=== PATIENT | male | born 1950 | race Caucasian/White ===

== ENCOUNTER 2019-07-04 13:48 | Inpatient (IN) ==
[2019-07-04] MEDS ORDERED: MORPHINE IV ONE (14:26)
[2019-07-04] MEDS ORDERED: ASPIRIN PO ONE (14:26)
[2019-07-04 15:00] LABS: BASO# 0.02 X1000 (0.0-0.2); BASO% 0.1 % (0.0-0.8); EOS# 0.01 X1000 (0.0-0.7); HEMATOCRIT 50.4 % (42.0-52.0); LYMPH% 8.9 % (20.5-51.1); MCH 28.1 PG (27-31); MCHC 33.7 g/dL (33-37); MCV 83.4 FL (81-99); MONO# 1.63 X1000 (0.11-0.59); MONO% 8.1 % (1.7-9.3); MPV 11.1 FL (7.4-10.4); NEUT% 82.9 % (42.2-75.2); PLT 334 X1000 (130-400); RBC 6.04 XMIL (4.7-6.1); RDW 14.9 % (11.5-14.5); WBC 20.16 X1000 (4.8-10.8)
[2019-07-04 15:25] LABS: ESTIMATED GFR > 60
--- NOTE | 2019-07-04 15:27 | Diag Imaging Result Doc PS360 ---
EXAM: CHEST-2 VIEWS INDICATION: cp TECHNIQUE: 3 views COMPARISON: None. FINDINGS: There is a small nodule at the periphery of the right mid to upper lung zone. It is not clearly calcified. It could represent a noncalcified granuloma. However, CT surveillance is suggested. There is interstitial thickening with vague Ken B lines at the mid and lower lung zones bilaterally suggesting mild edema. There is subsegmental atelectasis at the right lower lung zone. There is no significant pleural fluid collection or pneumothorax identified. The cardiac silhouette is unremarkable. IMPRESSION: 1.Mild interstitial thickening with vague Ken B lines at the mid and lower lung zone suggesting mild interstitial edema. 2.Indeterminant lung nodule at the periphery of the right mid to upper lung zone. Electronically signed by Luis A Orr 07/04/2019 3:25 PM
[2019-07-04 15:38] LABS: AGAP 17; ALB/GLOB RATIO 1.5; ALBUMIN 4.4 g/dL (3.5-5.0); ALKALINE PHOSPHATASE 74 U/L (32-122); BUN 14 mg/dL (8-22); CALCIUM 9.3 mg/dL (8.8-10.2); CHLORIDE 94 mmol/L (98-107); COSMO 271; GLUCOSE 169 mg/dL (70-104); GOT 156 U/L (10-34); GPT 55 U/L (10-44); POTASSIUM 4.7 mmol/L (3.5-5.1); SODIUM 133 mmol/L (136-145); TCO2 22 mmol/L (25-35); TOTAL BILIRUBIN 0.95 mg/dL (0.20-1.00); TOTAL PROTEIN 7.3 g/dL (6.3-8.3)
[2019-07-04] MEDS ORDERED: NITROGLYCERIN LINGUAL SPRAY SL PRN (15:50)
[2019-07-04] MEDS ORDERED: NITROGLYCERIN SL PRN ×2 (15:53→15:54)
[2019-07-04 15:59] LABS: FREE T4 1.07 ng/dL (0.93-1.70); TSH 3.49 uIUmL (0.27-4.20)
[2019-07-04 16:04] LABS: CK INDEX 13.6 (0.0-2.5); CK-MB 226.3 ng/mL (0.0-5.0)
--- NOTE | 2019-07-04 17:34 | Diag Imaging Result Doc PS360 ---
EXAM: CT THORAX W/CONTRAST INDICATION: chest pain TECHNIQUE: This exam was performed using automated exposure control, adjustment of mA or kV according to patient size, and/or use of iterative reconstruction technique. COMPARISON: None. FINDINGS: There is advanced centrilobular emphysema with an apical predominance. The nodule seen on the recent chest radiograph in the right upper lobe corresponds to a calcified granuloma. However, there is a cavitary mass in the medial right lower lobe that can be seen on image 62 of series 3. Is difficult to identify on the recent radiograph, likely being obscured by the pulmonary vasculature and the right heart border. It measures 3.4 x 2.7 cm axially. A cavitary neoplasm and pulmonary abscess are both in the differential. There are several other calcified granulomata and there are a few subcentimeter noncalcified nodules that are nonspecific seen mainly in the right lung. For reference, one of these nodules is near the right lung apex measuring 6.2 mm on image 17 of series 3. It is possible that they represent noncalcified granulomata. Continued surveillance is recommended, however. There is interstitial thickening at the lung bases suggesting mild edema. There are trace bilateral pleural effusions and there is minimal right basilar atelectasis. There are prominent subcarinal and right hilar lymph nodes that are nonspecific. There are somewhat calcified lymph nodes indicating prior granulomatous disease. For reference, a noncalcified subcarinal becka lesion measures up to 2.9 x 2.1 cm axially. There is no cardiomegaly. Limited views of the upper abdomen reveals moderate hepatic steatosis. The upper abdomen is essentially unremarkable, otherwise. There is thoracic spondylosis. There are degenerative changes at the right shoulder. There is nothing to suggest local bony metastatic disease to the thorax. IMPRESSION: 1.Advanced pulmonary emphysema. 2.Cavitary mass in the right lower lobe. Although this could represent a pulmonary abscess, cavitary neoplasm cannot be excluded. 3.Evidence of prior granulomatous disease with a calcified granuloma corresponding to the nodule that was seen on the recent chest radiograph in the right upper lobe. 4.Several other scattered subcentimeter noncalcified nodules with more on the right that are nonspecific. 5.Trace bilateral effusions. 6.Mild interstitial edema at the lung bases. 7.Other incidental/nonacute findings detailed above. Electronically signed by Luis A Orr 07/04/2019 5:31 PM
--- NOTE | 2019-07-04 17:57 | PROVIDER DOCUMENTATION ---
This chart was entered by Melinda Kruse Scribe, acting as scribe for Ty Nelson CRNP. HPI-Chest Pain - General Chief Complaint: Chest Pain Stated Complaint: CHEST PAIN Time Seen by Provider: 07/04/19 13:51 Source: patient Allergies/Adverse Reactions: Patient Allergies Allergy/AdvReac Type Severity Reaction Status Date / Time Penicillins Allergy Unknown Verified 07/04/19 14:28 - History of Present Illness-CP Nature of Presenting Problem: 69 yom presents to the ed via pov from [facility]. pt was seen at [facility] this am for c/o chest pain [facility] then sent back to the ed due to CP still persistent. pt had elevated WC and Trop when left [facility] at 1249. pt had labs and CXR done while in [place] [facility]. he reports when chest pain is at its worse he becomes sob and diaphoretic and thomas pain is a deep dull ache. he reports pain is intermittent and has been going for 3 days. Location: reports: central Chest Pain Radiation: reports: no radiation Quality of Pain: reports: dull Severity in ED: moderate Onset/Duration: 3 days ago Timing: intermittent Context/Activities at Onset: reports: light activity Modifying Factors: improves with: analgesics (mild improvement) Associated Symptoms: reports: diaphoresis, shortness of breath Nitro Today/Relief: no nitro taken today Aspirin Treatment Today: 325 mg x 1, provided by ED Prior Chest Pain/Cardiac Workup: reports: no prior chest pain Similar Symptoms Previously?: Yes Recently Seen Here or By Another Healthcare Provider: Yes ([facility] today x2) Review of Systems - Adult - REVIEW OF SYSTEMS - ADULT Constitutional: denies: chills, fever Eyes: reports: no symptoms reported Ears, Nose, Mouth & Throat: reports: no symptoms reported Cardiovascular: reports: see HPI, chest pain. denies: palpitations Respiratory: reports: see HPI, shortness of breath. denies: cough, wheezing Gastrointestinal: denies: abdominal pain, nausea, vomiting Genitourinary: reports: no symptoms reported Musculoskeletal: denies: back pain, neck pain Integumentary: reports: no symptoms reported Neurological: denies: dizziness/vertigo, headache/migraines Psychiatric: reports: no symptoms reported Endocrine: reports: no symptoms reported Hematologic/Lymphatic: reports: no symptoms reported Allergic/Immunologic: reports: no symptoms reported All Other Systems: Reviewed and Negative Past History - Adult - PAST MEDICAL HISTORY-ADULT Review of Records: reports: Old Records Reviewed, Nursing Assessment Review, Medications Reviewed, Social history reviewed & non-contributory. Major Childhood Illnesses: reports: denies history Cardiovascular: reports: denies history Respiratory: reports: denies history Gastrointestinal: reports: denies history Genitourinary: reports: denies history Musculoskeletal: reports: denies history Neurological: reports: denies history Endocrine/Immune: reports: denies history Other Conditions: reports: denies history - PRIOR SURGERIES/PROCEDURES Surgical/Procedure History: reports: reviewed, not pertinent - IMMUNIZATION STATUS Childhood Immunizations: See Nurse Assessment Flu Vaccine: See Nurse Assessment - FAMILY HISTORY Family History: reviewed, not pertinent - SOCIAL HISTORY Smoking: denies Substance Use: denies Living Situation: family Physical Exam-General - PHYSICAL EXAM-ADULT Initial Vital Signs Reviewed: Yes - CONSTITUTIONAL General Appearance: appears well, alert, no apparent distress (nontoxic in appearance pt admits pain is still present but not at its worst on exam) - EYES Eyes: PERRL/EOMI, pink conjunctivae - HEAD, EARS, NOSE, MOUTH & THROAT HENMT: moist mucous membranes - NECK Neck: full range of motion, supple, normal inspection - RESPIRATORY Respiratory: lungs clear, normal breath sounds - CARDIOVASCULAR Cardiovascular: normal peripheral pulses, regular rate, rhythm - CHEST (BREASTS) Chest/Breast: other (c/o dull ache in central chest that can not be repoduced) - GASTROINTESTINAL (ABDOMEN) Abdominal Exam: normal bowel sounds, non tender - LYMPHATIC Lymphatic: no adenopathy - MUSCULOSKELETAL Back Exam: no CVA tenderness, no vertebral tenderness Extremity: normal range of motion, non-tender, normal inspection - SKIN Integumentary: normal color, normal turgor, warm/dry - NEUROLOGIC Neurologic: grossly normal - PSYCHIATRIC Psych/Mental Status: normal mood/affect, normal thought content, normal thought process, oriented x 3 - HEART Score HEART Score: History: Moderately Suspicious HEART Score: ECG: Non-Specific Repolarization Disturbance/LBBB/PM HEART Score: Age: > or = 65 Years HEART Score: Risk Factors for Atherosclerotic Disease: 1 or 2 Risk Factors HEART Score: Troponin: > or = 3x Normal Limit Total HEART Score:: 7 Progress - PLAN OF CARE/RESULTS Progress/Plan/Lab Results: Vital Signs - 8 hr 07/04/19 14:23 07/04/19 15:02 07/04/19 15:57 Temperature 98.7 F Pulse Rate 91 H 84 95 H Respiratory Rate 24 23 27 H Blood Pressure 140/80 120/83 114/78 O2 Sat by Pulse Oximetry 96 98 97 Laboratory Results - last 24 hr 07/04/19 07/04/19 07/04/19 14:10 14:10 14:10 WBC RBC Hgb Hct MCV MCH MCHC RDW Std Deviation Plt Count MPV Neut % (Auto) Lymph % (Auto) Conway % (Auto) Eos % (Auto) Baso % (Auto) Neut # (Auto) Lymph # (Auto) Conway # (Auto) Eos # (Auto) Baso # (Auto) Sodium 133 L Potassium 4.7 Chloride 94 L Carbon Dioxide 22 L Anion Gap 17 BUN 14 Creatinine 1.0 Estimated GFR/1.73 m2 > 60 BUN/Creatinine Ratio 14 Glucose 169 H Calculated Osmolality 271 Calcium 9.3 Total Bilirubin 0.95 AST 156 H ALT 55 H Alkaline Phosphatase 74 Creatine Kinase 1663 H Creatine Kinase Index 13.6 H CK-MB (CK-2) 226.30 H Troponin T High Sens Total Protein 7.3 Albumin 4.4 Globulin 2.9 Albumin/Globulin Ratio 1.5 TSH 3.49 Free T4 1.07 07/04/19 07/04/19 14:10 14:10 WBC 20.16 H RBC 6.04 Hgb 17.0 Hct 50.4 MCV 83.4 MCH 28.1 MCHC 33.7 RDW Std Deviation 14.9 H Plt Count 334 MPV 11.1 H Neut % (Auto) 82.9 H Lymph % (Auto) 8.9 L Conway % (Auto) 8.1 Eos % (Auto) 0.0 Baso % (Auto) 0.1 Neut # (Auto) 16.70 H Lymph # (Auto) 1.80 Conway # (Auto) 1.63 H Eos # (Auto) 0.01 Baso # (Auto) 0.02 Sodium Potassium Chloride Carbon Dioxide Anion Gap BUN Creatinine Estimated GFR/1.73 m2 BUN/Creatinine Ratio Glucose Calculated Osmolality Calcium Total Bilirubin AST ALT Alkaline Phosphatase Creatine Kinase Creatine Kinase Index CK-MB (CK-2) Troponin T High Sens 918 H* Total Protein Albumin Globulin Albumin/Globulin Ratio TSH Free T4 Orders Category Date Time Status Isolation Precautions Setup NOW Care 07/04/19 17:52 Active Nursing- MD Consult Request ROUTINE Care 07/04/19 17:53 Active Nursing- MD Consult Request ROUTINE Care 07/04/19 17:55 Ordered Nursing- Obtain EKG ONCE Care 07/04/19 14:22 Active MD [Physician/Provider Consults] Routine Cons 07/04/19 17:53 Ordered CHEST-2 VIEWS [RAD] Stat Exams 07/04/19 14:22 Completed Chest [CT THORAX W/CONTRAST] [CT] Stat Exams 07/04/19 16:24 Completed CBC WITH ELECTRONIC DIFF [HEME] Stat Lab 07/04/19 14:10 Completed CK PROFILE [SP CHEM] Stat Lab 07/04/19 14:10 Completed COMPREHENSIVE METABOLIC PANEL [CHEM] Stat Lab 07/04/19 14:10 Completed FREE T4 Stat Lab 07/04/19 14:10 Completed TROPONIN T HIGH SENSITIVITY Stat Lab 07/04/19 14:10 Completed TROPONIN T HIGH SENSITIVITY Stat Lab 07/04/19 16:18 Uncollected TSH Stat Lab 07/04/19 14:10 Completed UA NIMS W/REFLEX CULT [URINALYSIS] Stat Lab 07/04/19 14:22 Uncollected URINE DRUG SCREEN PL Stat Lab 07/04/19 14:22 Uncollected Aspirin Med 07/04/19 14:26 Discontinued 325 mg PO NOW ONE Morphine Med 07/04/19 14:26 Discontinued 4 mg IV NOW ONE Nitroglycerin Sl [Nitroglycerin] Med 07/04/19 15:53 Active 0.4 mg SL Q5M PRN PRN EKG [EKG] Stat Ther 07/04/19 14:22 Ordered EKG [EKG] Stat Ther 07/04/19 16:26 Ordered pt brought records from visit from [place] ED with impression of PA and Lateral Chest:Bibasilar interstitial opacities may repersent infiltrates. this could be seen in the setting of Covid19. signed by Dr Mitch Hagen MD Result Diagrams: 07/04/19 14:10 07/04/19 14:10 - REASSESSMENT Reassessment #1 Time Reassessed: 15:51 Status: unchanged (pt sts pain is the same and has not improved) - EKG 1 Time of EKG reading by physician:: 13:58 EKG Read and Signed by:: Anton French EKG Interpretation (*Must complete 3 of following elements*): Abnormal Rate: 97 Rhythm: nsr Man: left (deviation) QRS: other (possible left atrial enlargement) DC Interval: normal ST Wave: normal - XRAY 1 XRAY: Bilateral XRAY Study: Chest Impression: See EMR Report (IMPRESSION: 1.Mild interstitial thickening with vague Ken B lines at the mid and lower lung zone suggesting mild interstitial edema. 2.Indeterminant lung nodule at the periphery of the right mid to upper lung zone. Electronically signed by Luis A Orr 07/04/2019 3:25 PM 07/04/19 1525) - CONSULTS/PCP/HOSPITALIST Notification #1 *Consult/PCP/Hospitalist*: transfer center Time Discussed: 15:59 Reason/Comments: elevated Troponin Consult Disposition: other (declined transfer due to patient was tested at [place] for COVID-19. Patient needs to be evaluated by cardiology here. Then, transfer can be accepted as a hospitalist to hospitalist transfer.) #2 Consult: Dr Luna Time Discussed: 16:26 Reason/Comments: Chest pain Consult Disposition: Will see in ED, other (Admit to hospitalist consult me. Get second EKG, Troponin, and CT scan of the chest.) #3 Consult: YULIYA Eric Time Discussed: 17:56 Consult Disposition: Admit Departure - Departure Date of Disposition Decision: 07/04/19 Time of Disposition Decision: 17:56 DIAGNOSIS: Myocardial infarct Qualifiers: Myocardial infarction type: non-ST elevation myocardial infarction Qualified Code(s): I21.4 - Non-ST elevation (NSTEMI) myocardial infarction Disposition: ADMITTED INPATIENT 09 Certified Medical Emergency: Emergent Condition: Critical Additional Instructions: ED Follow Up Instructions: You have been treated by a care provider in the Emergency Department. These instructions are being provided to you so you can have an understanding of how to care for yourself upon discharge. Upon discharge from the Emergency Dep artment, you are responsible for making arrangements for follow-up care by a physician of your choice. Take all prescribed medications as directed. Return to the Emergency Department immediately for any new or worsening symptoms. You may call the Physician Referral phone number at [phone] to obtain a list of Physicians who are taking new patients. Referrals and Follow-Ups: Noe Norwood [Primary Care Provider] - - Critical Care Note This patient required my direct & personal management of CC.: Yes Total Time (mins): 36 Critical Care Statement: This patient required my direct personal management to treat or rule out processes, the absence of which, could potentiallly result in sudden, clinically significant life or limb threatening deterioration. Attestation - Physician/ AGGIE Attestation Patient care was provided by Advanced Practice Provider:: Yes Advanced Practice Provider:: Ty Nelson Advanced Practice Provider documentation review:: The Mid-level provider documentation, treatment plan and medical decision making was reviewed by the maricel mon who agrees with all treatment and medical decision making by the MLP. The physician spent face to face time with patient:: No Advanced Practice Provider documentation review:: Supervising physician onsite and consulted in the evaluation and care of this patient. The physician did not have a face to face encounter with the patient. This chart was documented by the indicated scribe, (Melinda Kruse Scribe) and accurately reflects the services I performed and decisions made by me, Ty Nelson CRNP, as attested by the provider's signature.
[2019-07-04] MEDS ORDERED: LASIX IV ONE (18:11)
[2019-07-04 18:13] LABS: URINE SOURCE CLEAN CATCH
[2019-07-04] MEDS ORDERED: HEPARIN IV PRN (18:13)
[2019-07-04] MEDS ORDERED: HEPARIN IV ONE (18:13)
[2019-07-04] MEDS: HEPARIN 25,000 UNITS/D5W 25,000 UNIT/250 ML IV.SOLN IV SCH (18:15)
[2019-07-04 18:17] LABS: BILIRUBIN URINE NEGATIVE (NEGATIVE); BLOOD URINE NEGATIVE (NEGATIVE); COLOR YELLOW; GLUCOSE URINE NEGATIVE (NEGATIVE); KETONE URINE 10 mg/dL (NEGATIVE); LEUKOCYTES URINE NEGATIVE (NEGATIVE); NITRITE URINE NEGATIVE (NEGATIVE); PROTEIN URINE 70 mg/dL (NEGATIVE); TURBIDITY URINE CLEAR (CLEAR); UROBILINOGEN URINE 2 mg/dL (NORMAL)
[2019-07-04 18:18] LABS: UR EPITHELIAL CELLS <10 /HPF (<10); URINE BACTERIA NEGATIVE /HPF; URINE RBC <10 /HPF (<10); URINE WBC <10 /HPF (<10)
[2019-07-04] MEDS ORDERED: TYLENOL PO PRN (18:18)
[2019-07-04] MEDS ORDERED: ZOFRAN IV PRN (18:18)
[2019-07-04] MEDS ORDERED: AMBIEN PO PRN (18:18)
[2019-07-04 18:22] LABS: SP GRAVITY URINE 1.025
[2019-07-04] MEDS: LEVAQUIN 500 MG/D5W 500 MG/100 ML IVPB IV SCH (18:29)
--- NOTE | 2019-07-04 18:35 | CARDIOLOGY CONSULTATION ---
DATE: 07/04/2019 HISTORY OF PRESENT ILLNESS: A 69-year-old gentleman had chest discomfort for the last 2 days. He describes it as sharp in character over the retro sternum. Initially it was grade 4. No radiation to the back or down the arm. Subsequently he went to bed. Last night he had a severe episode of again sharp pain which was subsequently a pressure-like sensation across his chest. Associated with shortness of breath and some cough. He did not have any fevers. There is no dizziness or syncope. He does not complain of any palpitations. He is a smoker, smokes about half a pack of cigarettes a day and has smoked for more than 40 years. There is no history of alcohol or illicit drug abuse. He went to the urgent care in [place]. A COVID-19 test was done today, as his chest x-ray was abnormal. Subsequently he was asked to come to the emergency room at [facility] On arrival he had an electrocardiogram done, which revealed normal sinus rhythm with lateral myocardial infarction, with Q waves in the lateral leads with 0.[address] elevation, with T- wave inversion in the lateral leads. In addition, Q waves were noted in the inferior leads with 0.[address] elevation in the inferior leads. The patient's CK and CK-MB revealed a troponin of 918, CK-MB of 226 with a CK index of 13.6. Sodium 133, potassium 4.7, BUN 14, creatinine 1.0. WBC 20.16, hemoglobin 17.0, hematocrit 50.4, platelet count of 334,000. The patient also had a CT scan done which revealed advanced pulmonary emphysema; cavitary mass in the right lower lobe measuring 3.4 cm to 2.7 cm, which had a cavitary lesion which could represent a pulmonary abscess versus neoplasm. In addition, scattered nodules were noted in the right lung. There was trace bilateral effusion with mild interstitial edema. REVIEW OF SYSTEMS: A 14-point review of systems was done. GI system: There is no history of nausea, vomiting or diarrhea. There is no history of hematemesis or melena. Central nervous system: No focal weakness to suggest a CVA or TIA. Genitourinary system: There is no dysuria or hematuria. Respiratory system: There is no history of fevers. He has had some cough. There is no dizziness or syncope. PHYSICAL EXAMINATION: Blood pressure 114/78. Jugular venous pressure was normal. First and second heart sounds were heard. There was no S3 gallop. Respiratory system: Few wheezes. Abdomen was soft, nontender. There was no guarding or rigidity. Bowel sounds were heard. Central nervous system: Alert and oriented. Moving all 4 extremities. Examination of extremities revealed no pedal edema. HEENT: Atraumatic, normocephalic. Pupils were equal and reacting to light. SOCIAL HISTORY: The patient is a chronic smoker. There is no history of alcohol or illicit drug abuse. The patient lives at home. PAST MEDICAL HISTORY: Emphysema, hyperlipidemia. MEDICATIONS: He takes aspirin and lipid-lowering agents at home. ASSESSMENT AND PLAN: Mr. Dontae bowden is a 69-year-old gentleman with history of emphysema, chronic smoker. He comes with complaints of sharp episodes of chest pain. Yesterday he had sharp chest pains with pressure-like sensation in the retrosternal region and went to a walk-in clinic in [place]. They did COVID-19 screening and subsequently he was advised to come here. He has the following problems: 1. He has ST elevation myocardial infarction; however, he has had these symptoms for the last 2 days.Beyond the window of acute intervention. We will plan for aspirin, intravenous heparin per standard protocol, beta- blockers and Lipitor 80 mg a day. In addition to Plavix. 2. We will get an echocardiogram to assess cardiac and valvular function. 3. We will also get serial cardiac enzymes. 4. We will start him on nitroglycerin paste. At the time of my examination, he describes his chest pain as mild. 5. He also has a cavitary lesion which is new, measuring 3.4 to 2.7 cm, associated with emphysema with noncalcified nodules on the right lung with some bilateral pleural effusions. We will consult Pulmonology. In addition, this effusion is likely to be secondary to heart failure. We will give him Lasix as well. 6. As far as further management plan is concerned, we will need to do a cardiac catheterization as well to assess his coronaries arteries, and we will plan for that on Saturday. 7. He had COVID-19 screening done. This was in a walk-in clinic in [place]. We do not have any reports pertaining to that. Thank you for the consult. We will follow hospital course. cc: Rod Luna MD MTDMita
[2019-07-04 18:48] LABS: HEMOGLOBIN A1C 6.1 % (4.8-6.0)
--- NOTE | 2019-07-04 18:55 | HISTORY AND PHYSICAL ---
HISTORY OF PRESENT ILLNESS: He reports that 3 days ago he started having some pain midsternal. He describes it as sharp, and it was kind intermittent, but at about 3 o'clock this morning it got more severe and profound. He went to, I think, the [facility], where troponins were elevated. He had T-wave inversion in V4 through V6 and really appeared to have loss of R-waves in V1 through V3, so it appears he has had a myocardial infarction secondary to non ST elevation, past the point of being able of being able to benefit from thrombolytics. He denies fever or chills. He has not had any productive cough. No pleuritic pain. No exposures to upper respiratory infection that she is reporting. He has smoked for greater than 50 years and recently has cut down on his tobacco. When he had a CT of his chest, he had advanced emphysema. There was a cavitary mass in the right lower lobe which could represent pulmonary abscess. Cavitary neoplasm could not be excluded, and he has granulomatous disease, calcified granuloma corresponding to a nodule that has been seen on his chest radiograph in the right upper lobe. Several other scattered subcentimeter noncalcified nodules, more on the right, and they were nonspecific. Trace bilateral effusions. Mild interstitial edema in the lung bases. PAST SURGICAL HISTORY: He has had a tonsillectomy. He has had an appendectomy. REVIEW OF SYSTEMS: General: He denies any weight gain or loss. No fever or chills. HEENT: No change in visual or hearing acuity. No adenopathy that he has appreciated. No sinus tenderness or upper respiratory complaints such as sore throat or postnasal drainage. Respiratory: No increased work of breathing or dyspnea. Cardiovascular: Chest pain which is more of a sharp sensation right in the midsternum. No radiation to his neck or to his arm or shoulder or to his back. No pleuritic component. : No change in bowels. No gross hematochezia. : No gross hematuria. Musculoskeletal/Neurologic: No focal complaints Endocrinologic/hemologic: No significant history. PHYSICAL EXAMINATION: VITAL SIGNS: He is afebrile, temperature 98.3, pulse 95, respirations 27, blood pressure 114/78. O2 saturation is 97%. Weight is 178 pounds. Height 5 feet 8 inches. HEENT: Pupils are equal and round. LUNGS: Clear in all lung garvey. CARDIOVASCULAR: Regular rhythm and rate without murmur or S3. ABDOMEN: Soft, nondistended. SKIN: Warm and dry. NECK: Supple. No adenopathy. LABORATORY DATA: White count 20,160, hematocrit is 40, platelet count 334,000. He has 82% neutrophils, 8.9% lymphocytes, 8.1% monocytes. Sodium 133, potassium 4.7, chloride 94, bicarb 22, BUN 14, creatinine 1.0, blood sugar 169, calcium 9.3. AST is 156, ALT 55. His CK was 1663 with an MB of 226, and troponin was 918. Albumin 4.4. Chest x-ray, there is mild interstitial thickening with vague Ken B lines in the mid and lower lung zones suggesting mild interstitial edema. Indeterminate lung nodule in the periphery of the right lung in the mid upper lung zone. ASSESSMENT AND PLAN: 1. Chest pain consistent with a non ST-wave myocardial infarction. We are going to put him on full-dose heparin and give him some nitroglycerin as well as beta blockers. Dr. Luna has evaluated already. Plan to move him to the intensive care unit. 2. He has underlying chronic obstructive pulmonary disease. 3. There is a cavitary lesion seen on the CT scan is in the right lower lobe. This could represent a pulmonary abscess, but cavitary neoplasm is strongly suspected. I am going to go ahead and put him on an antibiotic for possible postobstructive pneumonia. He is allergic to penicillin, so we will use Levaquin. He does not have a prolonged QT interval that I am concerned about. I will put him on 500 mg of Levaquin every 24 hours. I am going to ask Pulmonary to help evaluate the cavitary mass and help with management and treatment. 4. We will watch his renal function and watch his electrolytes. He has no history of diabetes. 5. Will put him on a heart healthy diet. 6. Note, he does have leukocytosis. It appears to be nonspecific. I suspect it is stress demargination from his chest pain and heart attack. I do not see any other source of bacterial infection. I do not think he has symptoms suggestive of a viral upper respiratory tract infection. I understand he was tested for Coronavirus Disease at the [facility], so we will await those results, but he does not appear to have active viral upper respiratory tract infection. cc: Shayne Matson MD
--- NOTE | 2019-07-04 19:01 | EKG Report ---
Test Performed on : 07/04/2019 1:58:07 PM Test Reason : cp Blood Pressure : / mmHG Vent. Rate : 097 BPM Atrial Rate : 097 BPM P-R Int : 140 ms QRS Dur : 086 ms QT Int : 382 ms P-R-T Axes : 062 -30 054 degrees QTc Int : 485 ms Normal sinus rhythm. Possible Left atrial enlargement Left axis deviation Inferior infarct , age undetermined Anteroseptal infarct , age undetermined Abnormal ECG No previous ECGs available Unconfirmed Result
--- NOTE | 2019-07-04 19:01 | EKG Report ---
Test Performed on : 07/04/2019 5:29:58 PM Test Reason : REPEAT Blood Pressure : / mmHG Vent. Rate : 094 BPM Atrial Rate : 094 BPM P-R Int : 140 ms QRS Dur : 084 ms QT Int : 372 ms P-R-T Axes : 061 -40 035 degrees QTc Int : 465 ms Normal sinus rhythm. Left axis deviation Inferior infarct (cited on or before 04-JUL-2019) Anterior infarct (cited on or before 04-JUL-2019) Abnormal ECG When compared with ECG of 04-JUL-2019 13:58, (Unconfirmed) No significant change was found Unconfirmed Result
[2019-07-04] MEDS ORDERED: NITROGLYCERIN TOP ONE (19:30)
[2019-07-04] MEDS ORDERED: HEPARIN ONE (19:36)
[2019-07-04 19:59] LABS: INR 1.11; PROTIME 14.5 Seconds (11.0-16.0)
[2019-07-04 20:16] LABS: UR AMPHETAMINES QUAL NONE DETECTED (NONE DETECT); UR BARBITUATES QUAL NONE DETECTED (NONE DETECT); UR BENZODIAZEPIN QUAL NONE DETECTED (NONE DETECT); UR CANNABINOIDS QUAL NONE DETECTED (NONE DETECT); UR COCAINE QUAL NONE DETECTED (NONE DETECT); UR METHADONE QUAL NONE DETECTED (NONE DETECT); UR OPIATES QUAL PRESUMPTIVE POSITIVE (NONE DETECT); UR OXYCODONE QUAL NONE DETECTED (NONE DETECT); UR PCP QUAL NONE DETECTED (NONE DETECT)
[2019-07-04] MEDS: LOPRESSOR PO SCH (21:00)
[2019-07-04] MEDS: LIPITOR PO SCH (21:00)
[2019-07-04 22:15] LABS: CK INDEX 10.8 (0.0-2.5); CK-MB 273.9 ng/mL (0.0-5.0)
[2019-07-05 02:56] LABS: CK INDEX 10.7 (0.0-2.5); CK-MB 211.7 ng/mL (0.0-5.0)
[2019-07-05 06:37] LABS: BASO# 0.17 X1000 (0.0-0.2); HEMATOCRIT 47.3 % (42.0-52.0); HEMOGLOBIN 15.8 g/dL (14.0-18.0); IMM GRAN# 0.07 X1000 (0.0-0.04); IMM GRAN% 0.4 % (0.0-0.5); LYMPH# 2.08 X1000 (1.2-3.4); MCH 28.1 PG (27-31); MCHC 33.4 g/dL (33-37); MONO# 2.86 X1000 (0.11-0.59); MONO% 16.6 % (1.7-9.3); PLT 275 X1000 (130-400); RBC 5.63 XMIL (4.7-6.1); RDW 14.5 % (11.5-14.5); WBC 17.28 X1000 (4.8-10.8)
[2019-07-05 07:10] LABS: AGAP 15; ALBUMIN 3.6 g/dL (3.5-5.0); ALKALINE PHOSPHATASE 63 U/L (32-122); BUN 17 mg/dL (8-22); CALCIUM 9.1 mg/dL (8.8-10.2); CHLORIDE 99 mmol/L (98-107); COSMO 273; CREATININE 0.9 mg/dL (0.7-1.2); ESTIMATED GFR > 60; GLUCOSE 131 mg/dL (70-104); GOT 247 U/L (10-34); GPT 61 U/L (10-44); POTASSIUM 4.4 mmol/L (3.5-5.1); SODIUM 135 mmol/L (136-145); TCO2 21 mmol/L (25-35); TOTAL BILIRUBIN 1.44 mg/dL (0.20-1.00); TOTAL PROTEIN 7.1 g/dL (6.3-8.3)
--- NOTE | 2019-07-05 08:17 | Diag Imaging Result Doc PS360 ---
EXAM: CHEST-PORTABLE INDICATION: ACS/AMI TECHNIQUE: One view COMPARISON: 07/04/2019 FINDINGS: Inspiration is suboptimal. Interstitial edema appears to have worsened slightly. The known cavitary lesion seen on CT at the medial right lung base remains obscured. No new consolidation is identified. Cardiac silhouette is stable. IMPRESSION: Worsening of interstitial edema. Electronically signed by Luis A Orr 07/05/2019 8:15 AM
[2019-07-05] MEDS: LASIX IV SCH (08:36)
[2019-07-05] MEDS: LOPRESSOR PO SCH ×2 (08:36→20:25)
[2019-07-05] MEDS: ASPIRIN PO SCH (08:36)
--- NOTE | 2019-07-05 11:57 | ECHO REPORT ---
ORDER DATE: 07/05/2019 INTERPRETING PHYSICIAN: Dr. Rod Luna. ECHOCARDIOGRAPHIC MEASUREMENTS: 1. Interventricular septum 1.3. 2. Left ventricular posterior wall 1.2. 3. Diastolic diameter 4.3. 4. Left atrium 3.2 cm. SUMMARY OF THE 2-DIMENSIONAL IMAGIN. Technically suboptimal study. Poor acoustic window. 2. Aortic valve leaflets were mildly sclerosed, trileaflet, opening normally. 3. Pulmonic valve not well visualized. 4. Mitral valve was normal. There is mild mitral annular calcification. 5. Tricuspid valve was normal. 6. Normal left ventricular cavity size with severely reduced systolic function. Best function was noted in the base of the left ventricle. There is anteroseptal and apical akinesis with an estimated ejection fraction of 20% to 25%. 7. There appears to be echogenic structure in the left ventricular apex, suggestive of thrombus. 8. There is mild mitral regurgitation. 9. Peak velocity across the aortic valve less than 2 m/sec. There is no aortic stenosis or regurgitation. 10. There is mild tricuspid regurgitation. Peak velocity across the tricuspid valve was 3 m/sec. 11. Pulmonary artery systolic pressure of 46 mmHg. 12. There is diastolic dysfunction. CONCLUSIONS: Normal left ventricular cavity size. Borderline left ventricular hypertrophy. Estimated ejection fraction of 20% to 25%. There is anteroseptal and apical akinesis with a layered thrombus noted in the left ventricular apex. There is no pericardial effusion. cc: MD Jeaneth Jarrett CRNP
[2019-07-05] MEDS ORDERED: PLAVIX PO ONE (12:44)
[2019-07-05] MEDS ORDERED: [UNRECOGNIZED DRUG - OTHER] IV ONE (12:54)
[2019-07-05 12:59] LABS: CK INDEX 6.8 (0.0-2.5); CK-MB 114.7 ng/mL (0.0-5.0)
[2019-07-05] MEDS ORDERED: VANCOMYCIN IV PER PHARMACY MISC SCH (14:00)
--- NOTE | 2019-07-05 14:08 | PROGRESS NOTE ---
DATE: 07/05/2019 SUBJECTIVE: Mr. Dietrich feels better. No chest pain. He is breathing comfortably. He is requesting a diet so we will put him on some food. OBJECTIVE: Temperature 99.8 degrees, pulse 87, respirations 24, blood pressure 104/70. Pupils are equal and round. Lungs are clear in all lung garvey. Cardiovascular Examination: Regular rhythm and rate without murmur or S3. Abdomen is soft. Skin is warm and dry. Urine output is 2500 mL. Echocardiogram is a technically suboptimal study. Aortic valve leaflets mildly sclerosed, trileaflet opening normally. Pulmonic valve not well-visualized. Mitral valve was normal. Tricuspid valve normal. Normal left ventricular cavity size with severely reduced systolic function. Best function was noted at the base of the left ventricle. There is anterior septal and apical akinesis with estimated ejection fraction of 20 to 25 percent. Appears to be an echogenic structure in the left apex suggestive of thrombus. There is a mild mitral regurgitation. There is mild tricuspid regurgitation. Pulmonic artery pressure was about 46 mmHg. Chest x-ray from this morning, worsening of interstitial edema. ASSESSMENT AND PLAN: 1. The patient had an ST elevation myocardial infarction but had these symptoms for 2 days and beyond the window of acute intervention, on aspirin, on heparin, beta blockers, and Lipitor. I think Dr. Luna is going to add Plavix. There is a mural thrombus in the left ventricle. 2. Left ventricular dysfunction, ejection fraction estimated at 20 to 25 percent. It looks like there is an apical thrombus there. The patient is already on heparin. 3. Continue serial cardiac enzymes and nitroglycerin paste. The plan is to transfer to [facility]. 4. Cavitary lesion measuring 3.4 x 2.7 cm, associated with emphysema, noncalcified nodules in the right lung with some bilateral pleural effusions. Dr. Monk is evaluating. I suspect will need to have his cardiac status stabilized before we will pursue that. 5. He had been checked for Covid-19 in [place]. Of course, waiting on those results. He did not have symptoms suggestive of a viral infection. REVIEW OF HIS ORDERS: He is on Plavix 300 mg 1 dose today. He is on Lipitor 80 mg at bedtime, aspirin 81 mg a day, Plavix 75 mg a day, he is on a heparin drip, losartan 25 mg a day, metoprolol 25 mg b.i.d., spironolactone 12.5 mg a day, and aspirin 325 mg a day. cc: Shayne Matson MD
[2019-07-05] MEDS: MAXIPIME 2 GM/NS 2 GM/100 ML IVPB IV SCH (14:37)
[2019-07-05] MEDS ORDERED: VANCOMYCIN 2.1 GM in NS 500 ML IV ONE (16:00)
[2019-07-05] MEDS: HEPARIN 25,000 UNITS/D5W 25,000 UNIT/250 ML IV.SOLN IV SCH ×2 (16:36→17:37)
--- NOTE | 2019-07-05 17:34 | EKG Report ---
Test Performed on : 07/05/2019 06:50:24 AM Test Reason : ACS/AMI Blood Pressure : / mmHG Vent. Rate : 093 BPM Atrial Rate : 093 BPM P-R Int : 134 ms QRS Dur : 082 ms QT Int : 372 ms P-R-T Axes : 134 -19 079 degrees QTc Int : 462 ms Unusual P axis, possible ectopic atrial rhythm. Low voltage QRS Inferior infarct (cited on or before 04-JUL-2019) Cannot rule out Anterior infarct (cited on or before 04-JUL-2019) Abnormal ECG When compared with ECG of 04-JUL-2019 17:29, (Unconfirmed) Ectopic atrial rhythm. has replaced Sinus rhythm. Confirmed by Thomas Reid MD ([id number]) on 07/05/2019 6:08:18 PM
--- NOTE | 2019-07-05 17:35 | EKG Report ---
Test Performed on : 07/05/2019 11:49:57 AM Test Reason : Increased troponin Blood Pressure : / mmHG Vent. Rate : 088 BPM Atrial Rate : 088 BPM P-R Int : 144 ms QRS Dur : 088 ms QT Int : 364 ms P-R-T Axes : 056 -33 049 degrees QTc Int : 440 ms Normal sinus rhythm. Left axis deviation Inferior infarct (cited on or before 04-JUL-2019) Anteroseptal infarct (cited on or before 04-JUL-2019) Abnormal ECG When compared with ECG of 05-Jul-2019- Unusual P axis is no longer present. Confirmed by Thomas Reid MD ([id number]) on 07/05/2019 6:10:14 PM
[2019-07-05] MEDS: LEVAQUIN 500 MG/D5W 500 MG/100 ML IVPB IV SCH (17:37)
--- NOTE | 2019-07-05 19:54 | PULMONOLOGY CONSULTATION ---
DATE: 07/05/2019 CONSULTING PHYSICIAN: Shayne Matson MD REASON FOR CONSULT: Cavitary lesion. HISTORY OF PRESENT ILLNESS: This is a 69-year-old gentleman with a history of hyperlipidemia who presents to the emergency room complaining of midsternal chest pain that had been present for 3 days. He was found to have a ST-elevation SC. He was evaluated by Cardiology and placed on heparin per protocol with beta blockers, Lipitor and Plavix with aspirin with echocardiogram revealing ejection fraction of 20% to 25% with a layered thrombus in the left ventricular apex. He was also found to have a right lower lobe cavitary mass that could represent abscess with neoplasm not excluded, prompting our consult. PAST MEDICAL HISTORY: Hyperlipidemia. PAST SURGICAL HISTORY: Appendectomy, tonsillectomy. SOCIAL HISTORY: He smokes about a pack a day. He denies any alcohol or illicit drug use. ALLERGIES: Penicillin which caused nausea and sore at the site of injection. HOME MEDICATIONS: He denies. FAMILY HISTORY: Positive for hypertension. He is unsure of any other family history. REVIEW OF SYSTEMS: As discussed with the patient. PHYSICAL EXAMINATION: General: This is a 69-year-old gentleman who is sitting up on the bed in no distress. Vital Signs: Blood pressure is 104/70 with a heart rate of 87, respirations are 22, temperature is 99.8 degrees with O2 saturations 100% on 2 L nasal cannula. Eyes: Pupils equal, round, react to light. EOMs are intact sclerae anicteric. HENT: Head is normocephalic, atraumatic. Mucous membranes are moist. Neck: Supple with trachea midline. No JVD. Cardiovascular: Regular rate and rhythm. S1 and S2 appreciated. No murmur. Pulmonary: Breath sounds are clear with no increased work of breathing noted. Chest rises and falls symmetric with respiration. Gastrointestinal: Abdomen is soft, nontender, nondistended with bowel sounds in all 4 quadrants. Extremities: No clubbing, cyanosis, or edema. Calves are nontender bilateral. Neurologic: He is alert and oriented x3. LABS: WBC is 17.2 with hemoglobin 15.8, hematocrit 47.3, and platelets 275,000. Sodium is 135, potassium 4.4, BUN 17, creatinine 0.9 with a glucose of 131. Troponins age 918, 1772, 2518, 2952 with CPK 1679, CK-MB 114.70. Urinalysis is essentially negative. Urine drug screen reveals none detected, except for opiates which is presumptive positive. EKG revealed sinus rhythm with a lateral SC with Q-waves in the lateral leads with [address] elevation with T-wave inversion in the lateral leads. Q-waves were noted in the inferior leads with 0.[address]-elevation in inferior leads. CT of the chest revealed advanced pulmonary emphysema, cavitary mass in the right lower lobe, which could represent an abscess, cavitary neoplasm cannot be excluded. Several scattered sub centimeter noncalcified nodules on the right. Trace bilateral pleural effusions. Echocardiogram revealed normal ventricular cavity size with borderline LVH. Estimated ejection fraction of 20% to 25% with anteroseptal and apical akinesis with a layered thrombus noted in the left ventricular apex. No pericardial effusion. ASSESSMENT: 1. Advanced pulmonary emphysema. 2. Cavitary mass in the right lower lobe pulmonary abscess and neoplasm not excluded. 3. PST elevation myocardial infarction. 4. Ejection fraction of 20% to 25%. 5. Layered thrombus in the left ventricular apex. PLAN: 1. We will start antibiotics of Maxipime and vancomycin dosed per pharmacy. Of note, I did clarify the penicillin allergy with the patient. He stated that he had a shot when he was a child and he had a sore at the injection site and he was nauseated. Further antibiotics will be culture driven. 2. We will give supplemental oxygen as needed. 3. Anticoagulation and cardiac care per Dr. Luna. 4. The patient was tested for Coronavirus disease at [facility]. We have not got the results of the test. He remains in isolation. 5. The patient will need antibiotics treatment for 3 weeks. After this concluded, he needs to be rescanned to evaluate this cavitary lesion and then further workup per results of CT scan. Plan was discussed with Dr. Monk. Thank you for allowing us to participate in this patient's care. Dictated by YULIYA Can for Mehdi Monk MD cc: YULIYA Can MD
[2019-07-05] MEDS: LIPITOR PO SCH (20:23)
[2019-07-06] MEDS: MAXIPIME 2 GM/NS 2 GM/100 ML IVPB IV SCH (02:57)
[2019-07-06 07:03] LABS: BASO# 0.04 X1000 (0.0-0.2); BASO% 0.3 % (0.0-0.8); EOS# 0.01 X1000 (0.0-0.7); EOS% 0.1 % (0.0-10.0); HEMATOCRIT 46.4 % (42.0-52.0); HEMOGLOBIN 15.1 g/dL (14.0-18.0); IMM GRAN# 0.06 X1000 (0.0-0.04); IMM GRAN% 0.4 % (0.0-0.5); LYMPH# 2.51 X1000 (1.2-3.4); LYMPH% 16.2 % (20.5-51.1); MCH 27.8 PG (27-31); MCHC 32.5 g/dL (33-37); MCV 85.3 FL (81-99); MONO# 2.71 X1000 (0.11-0.59); MONO% 17.5 % (1.7-9.3); MPV 11.8 FL (7.4-10.4); NEUT# 10.15 X1000 (1.4-6.5); NEUT% 65.5 % (42.2-75.2); PLT 263 X1000 (130-400); RBC 5.44 XMIL (4.7-6.1); RDW 14.7 % (11.5-14.5); WBC 15.48 X1000 (4.8-10.8)
[2019-07-06 07:12] LABS: INR 1.27; PROTIME 16.1 Seconds (11.0-16.0)
[2019-07-06 07:45] LABS: AGAP 13; ALB/GLOB RATIO 1.4; ALBUMIN 3.6 g/dL (3.5-5.0); ALKALINE PHOSPHATASE 56 U/L (32-122); BUN 26 mg/dL (8-22); CALCIUM 8.6 mg/dL (8.8-10.2); CHLORIDE 97 mmol/L (98-107); COSMO 274; CREATININE 0.9 mg/dL (0.7-1.2); ESTIMATED GFR > 60; GLUCOSE 112 mg/dL (70-104); GOT 126 U/L (10-34); GPT 46 U/L (10-44); POTASSIUM 4.3 mmol/L (3.5-5.1); SODIUM 134 mmol/L (136-145); TCO2 24 mmol/L (25-35); TOTAL BILIRUBIN 2.22 mg/dL (0.20-1.00); TOTAL PROTEIN 6.2 g/dL (6.3-8.3)
[2019-07-06 08:00] LABS: CK INDEX 3.4 (0.0-2.5); CK-MB 27.88 ng/mL (0.0-5.0)
[2019-07-06] MEDS ORDERED: ALDACTONE PO SCH (09:00)
[2019-07-06] MEDS ORDERED: PLAVIX PO SCH (09:00)
[2019-07-06] MEDS ORDERED: COZAAR PO SCH (09:00)
[2019-07-06] MEDS: ASPIRIN PO SCH (09:07)
[2019-07-06] MEDS: LOPRESSOR PO SCH (09:07)
[2019-07-06] MEDS: LASIX IV SCH (09:07)
[2019-07-06] MEDS ORDERED: HEPARIN IV PRN (09:43)
[2019-07-06] MEDS ORDERED: HEPARIN 25,000 UNITS/D5W 25,000 UNIT/250 ML IV.SOLN IV SCH (09:45)
[2019-07-06 09:52] VITALS: BP 133/93
--- NOTE | 2019-07-06 13:47 | DISCHARGE SUMMARY ---
ADMISSION DATE: 07/04/2019 DISCHARGE DATE: 07/06/2019 HOSPITAL COURSE: This is a 69-year-old states that from 3 days ago he has had some pain, midsternal, described as sharp and intermittent. At about 3 o'clock in the morning of admission had been more severe, profound. He came to the [place] [facility] where troponins were elevated, T-wave inversion in V 4 through V 6, and had loss of R-waves in V 1 through V 3. It appears that he had an ST elevation myocardial infarction, but 3 days out past the point of being unable to give thrombolytics. On workup, it appeared he had a cavitary lesion in the CT scan the right lower lobe and was admitted. Hemodynamically remained stable. He put him on heparin. Pulmonary was asked to see and was put on nitroglycerin and beta blockers, but felt he needed to have a heart catheterization to define his coronary anatomy. So he was sent to [facility], and his discharge orders he can continue current medication. He was on medication, which I believe was heparin drip and beta blockers, his Lipitor and added Plavix and aspirin. He had COVID-19 screening done before he came here in [place], but it was still pending, but he had no symptoms to suggest a viral upper respiratory tract infection. cc: Shayne Matson MD
[2019-07-06] MEDS ORDERED: VANCOMYCIN 1.7 GM in NS 250 ML IV SCH (16:00)
--- NOTE | 2019-07-06 16:38 | PULMONOLOGY PROGRESS NOTE ---
DATE: 07/06/2019 SUBJECTIVE: The patient is awake and alert. He reports he feels a little better. OBJECTIVE: Blood pressure 109/77, heart rate 88, respiratory rate 11, oxygen saturation 96% on 2 L per nasal cannula. HEENT: Pupils are equal and reactive. Oropharynx appears clear. Neck is supple. Chest reveals crackles bilaterally. Cardiac Examination: S1, S2. Abdomen: Soft. Extremities are without edema. IMPRESSION: A 69-year-old with: 1. Cavitary lung mass. 2. Leukocytosis. 3. Severe chronic obstructive pulmonary disease. 4. Cardiomyopathy. 5. Chest pain. DISCUSSION: A 69-year-old with problems outlined above. The area in the right chest could represent an aspiration pneumonitis or it could represent a lung cancer. The patient has had some fevers which would support this as being an abscess. However, he will need a followup scan after a 3 to 4 week course of antibiotics. Unfortunately, he is being transferred for cardiac evaluation. PLAN: 1. Anticipate transfer to [facility] later this morning. 2. Continue broad-spectrum antibiotics. If he does not improve, he will require a CT-guided biopsy if an aggressive approach is planned. 3. The patient was informed to call my office or to make sure that he sees a rn occupational health after his discharge. cc: Mehdi Monk MD
== END 2019-07-06 11:55 | disposition short-term general hospital (02) | DRG 280 ==
LOC: ED 13:48 → ICU 20:57
PROVIDERS: ATTEND Emergency Medicine